=== PATIENT | male | born 2000 | race Two or more races ===

== ENCOUNTER 2019-04-22 10:55 | Emergency (ER) | payer OTHER ==
[~2019-04-22] VITALS: Ht 185.4 cm; Wt 95.6 kg
[2019-04-22] MEDS ORDERED: DEXAMETHASONE 4 MG TABLET ONE (11:55)
[2019-04-22] MEDS ORDERED: DEXAMETHASONE 4 MG TABLET PO ONE (12:00)
[2019-04-22 12:13] VITALS: BP 128/86
== END 2019-04-22 12:34 | disposition home or self-care (01) ==
LOC: ED 12:26
DX: J02.8 Acute pharyngitis due to other specified organisms (principal); B97.89 Other viral agents as the cause of diseases classified elsewhere
CPT/HCPCS: 87081; 87880; 99283